=== PATIENT | female | born 1975 | race African-American/Black ===

== ENCOUNTER 2024-04-04 02:18 | Inpatient (IN) | payer OTHER ==
[2024-04-04 02:31] VITALS: BMI 34.5
[2024-04-04] MEDS ORDERED: BISMUTH SUBSALICYLATE 524 MG/30 ML PO PRN (02:39)
[2024-04-04] MEDS ORDERED: hydrOXYzine PAMOATE 25 MG CAPSULE (FP) PO PRN (02:39)
[2024-04-04] MEDS ORDERED: BENZONATATE 200 MG CAPSULE PO PRN (02:39)
[2024-04-04] MEDS ORDERED: IBUPROFEN 600 MG TABLET (FP) PO PRN (02:39)
[2024-04-04] MEDS ORDERED: IBUPROFEN 400 MG TABLET (FP) PO PRN (02:39)
[2024-04-04] MEDS ORDERED: BENZOCAINE/MENTHOL (CHLORASEPTIC ) LOZENGE MM PRN (02:39)
[2024-04-04] MEDS ORDERED: ONDANSETRON *ODT* 4 MG TABLET SL PRN (02:39)
[2024-04-04] MEDS ORDERED: LOPERAMIDE HCL 2 MG CAPSULE PO PRN (02:39)
[2024-04-04] MEDS ORDERED: MAG HYDROX/AL HYDROX/SIMETH 30 ML UNIT-DOSE CUP PO PRN (02:39)
[2024-04-04] MEDS ORDERED: NALOXONE (NARCAN) HCL 4 MG/0.1 ML SPRAY NS PRN (02:39)
[2024-04-04] MEDS ORDERED: NALOXONE HCL 0.4 MG/ML VIAL IM PRN (02:39)
[2024-04-04] MEDS ORDERED: POLYETHYLENE GLYCOL (HEALTHYLAX) 3350 17 GM PACKET PO PRN (02:39)
[2024-04-04] MEDS ORDERED: DICYCLOMINE HCL 10 MG CAPSULE PO PRN (02:39)
[2024-04-04] MEDS ORDERED: MAGNESIUM HYDROX 2400MG/30ML ORAL SUSPENSION 30 ML CUP PO PRN (02:39)
[2024-04-04] MEDS ORDERED: guaiFENesin 600 MG TABLET.ER (FP) PO PRN (02:39)
[2024-04-04] MEDS ORDERED: ACETAMINOPHEN 325 MG TABLET (FP) PO PRN (02:39)
[2024-04-04 08:50] VITALS: RESP 18
[2024-04-04] MEDS: PRENATAL VITAMINS W/ FOLIC ACID TABLET (FP) PO SCH (10:10)
[2024-04-04 11:23] LABS: HEMATOCRIT 35.3 % (32.4-45.2); HEMOGLOBIN 11.5 GM/dL (10.7-15.3); MCH 29.1 pg (25.7-33.7); MCHC 32.5 g/dl (32.0-36.0); MEAN CELL VOLUME 89.7 fl (80-96); MEAN PLT VOLUME 7.1 fl (7.5-11.1); PLATELET COUNT 269 10^3/uL (134-434); RBC 3.93 M/mm3 (3.60-5.2); RDW 15.5 % (11.6-15.6); WHITE BLOOD COUNT 8.3 K/mm3 (4.0-10.0)
[2024-04-04 11:42] LABS: CHLORIDE 111 mmol/L (98-107); POTASSIUM 3.4 mmol/L (3.5-5.1); SODIUM 142 mmol/L (136-145)
[2024-04-04 11:49] LABS: ALBUMIN 3.3 g/dl (3.4-5.0); BLOOD UREA NITROGEN 74.6 mg/dL (7-18); GLUCOSE,RANDOM 64 mg/dL (74-106); SGOT/AST 20 U/L (15-37); SGPT/ALT 12 U/L (13-61)
[2024-04-04 11:51] LABS: BILIRUBIN,TOTAL 0.5 mg/dL (0.2-1); TOT PROT 6.8 g/dl (6.4-8.2)
[2024-04-04 11:52] LABS: ALK PHOS 92 U/L (45-117); ANION GAP 15 mmol/L (4-13); CALCIUM 9.4 mg/dL (8.5-10.1); CO2 16 mmol/L (21-32)
[2024-04-04 11:54] LABS: CREATININE 8.6 mg/dL (0.55-1.3)
[2024-04-04 13:50] VITALS: BP 112/63; PULSE 60; TEMP 97.4
[2024-04-04] MEDS: MELATONIN 5 MG TABLETS PO SCH (23:21)
[2024-04-04] MEDS: THIAMINE 100 MG TABLET PO SCH (23:22)
== END 2024-04-05 06:32 | disposition short-term general hospital (02) | DRG 773 ==
LOC: YASAS 02:18 → Y3N 02:21
PROVIDERS: ADMIT Allergy & Immunology; ATTEND Allergy & Immunology
PROC: HZ2ZZZZ Detoxification Services for Substance Abuse Treatment (ICD-10-PCS; principal; 2024-04-04)
DX: F11.20 Opioid dependence, uncomplicated (principal); F14.20 Cocaine dependence, uncomplicated; F19.24 Other psychoactive substance dependence with psychoactive substance-induced mood disorder; F20.9 Schizophrenia, unspecified; R94.4 Abnormal results of kidney function studies; Z59.00 Homelessness unspecified
CPT/HCPCS: 36415; 80053; 80305; 80307; 81025; 85027; 86593; 86780; 93005; 93010

== ENCOUNTER 2024-04-04 16:18 | Inpatient (IN) | payer OTHER ==
[2024-04-04] MEDS: SODIUM CHLORIDE 0.9% 500 ML INFUS.BAG IV ONE (17:50)
[2024-04-04 18:25] LABS: BASO % 0.3 % (0-2.0); EOS % 2.1 % (0-4.5); HEMOGLOBIN 12.1 GM/dL (10.7-15.3); LYMPH % 12.5 % (8-40); MCH 29.2 pg (25.7-33.7); MCHC 32.7 g/dl (32.0-36.0); MEAN CELL VOLUME 89.2 fl (80-96); MEAN PLT VOLUME 6.9 fl (7.5-11.1); MONO % 8.2 % (3.8-10.2); NEUT % 76.9 % (42.8-82.8); PLATELET COUNT 287 10^3/uL (134-434); RBC 4.14 M/mm3 (3.60-5.2); RDW 15.7 % (11.6-15.6)
[2024-04-04 18:31] LABS: INR 0.96 (0.83-1.09)
[2024-04-04 18:33] LABS: ACTIVATED PTT 30.6 SECONDS (25.2-36.5)
[2024-04-04 18:35] LABS: CHLORIDE 109 mmol/L (98-107); POTASSIUM 3.7 mmol/L (3.5-5.1); SODIUM 140 mmol/L (136-145)
[2024-04-04 18:38] LABS: ALBUMIN 3.5 g/dl (3.4-5.0); CALCIUM 9.2 mg/dL (8.5-10.1)
[2024-04-04 18:39] LABS: ANION GAP 10 mmol/L (4-13); BLOOD UREA NITROGEN 62.8 mg/dL (7-18); CO2 21 mmol/L (21-32); GLUCOSE,RANDOM 93 mg/dL (74-106); MAGNESIUM 1.7 mg/dL (1.8-2.4)
[2024-04-04 18:42] LABS: PHOSPHOROUS 4.8 mg/dL (2.5-4.9); SGOT/AST 16 U/L (15-37); SGPT/ALT 12 U/L (13-61)
[2024-04-04 18:44] LABS: BILIRUBIN,TOTAL 0.4 mg/dL (0.2-1); TOT PROT 7.3 g/dl (6.4-8.2)
[2024-04-04 18:45] LABS: ALK PHOS 98 U/L (45-117)
[2024-04-04] MEDS ORDERED: MAGNESIUM 1GM/D5W - 1 GM/100 ML IVPB IVPB ONE (19:26)
[2024-04-04 19:34] LABS: HIV INTERPRETATION NEGATIVE (NEGATIVE)
[2024-04-04] MEDS: MAGNESIUM SULF 50% (8.12 MEQ/2 ML-1 GM VIAL) IVPB ONE (21:38)
[2024-04-04] MEDS: SODIUM CHLORIDE 1,000 ML IV STA (22:38)
[2024-04-05] MEDS: SODIUM CHLORIDE 1,000 ML IV SCH (01:17)
[2024-04-05 01:38] LABS: POTASSIUM 3.9 mmol/L (3.5-5.1)
[2024-04-05 01:40] LABS: BLOOD UREA NITROGEN 57.2 mg/dL (7-18); CALCIUM 8.7 mg/dL (8.5-10.1)
[2024-04-05 01:43] LABS: CREATININE 7.1 mg/dL (0.55-1.3)
[2024-04-05 03:19] VITALS: BMI 35.7
[2024-04-05] MEDS ORDERED: methaDONE HCL 10 MG TABLET (FOR DETOX USE ONLY) PO ONE (11:30)
[2024-04-05] MEDS: methaDONE HCL 10 MG TABLET PO ONE (11:31)
[2024-04-05] MEDS: METOCLOPRAMIDE HCL INJECTION 10 MG/2 ML VIAL IVPUSH ONE ×2 (11:32→17:55)
[2024-04-05] MEDS: FAMOTIDINE 20 MG/50 ML IVPB 20 MG/50 ML MG IVPB ONE (12:26)
[2024-04-05] MEDS: cloNIDine HCL 0.1 MG TABLET PO ONE (17:32)
[2024-04-05 18:52] LABS: POTASSIUM 3.5 mmol/L (3.5-5.1)
[2024-04-05 18:55] LABS: CALCIUM 9.5 mg/dL (8.5-10.1)
[2024-04-05 18:56] LABS: ALBUMIN 3.4 g/dl (3.4-5.0); BLOOD UREA NITROGEN 47.2 mg/dL (7-18)
[2024-04-05 18:59] LABS: CREATININE 5.5 mg/dL (0.55-1.3)
[2024-04-05 19:00] LABS: BILIRUBIN,TOTAL 0.5 mg/dL (0.2-1); TOT PROT 7.1 g/dl (6.4-8.2)
[2024-04-06] MEDS: cloNIDine HCL 0.1 MG TABLET PO ONE (00:36)
[2024-04-06] MEDS: ONDANSETRON 4 MG/2 ML VIAL IVPUSH ONE (00:36)
[2024-04-06 10:19] LABS: BASO % 0.3 % (0-2.0); HEMATOCRIT 35.1 % (32.4-45.2); HEMOGLOBIN 11.9 GM/dL (10.7-15.3); LYMPH % 14.3 % (8-40); MCH 29.9 pg (25.7-33.7); MCHC 33.9 g/dl (32.0-36.0); MEAN PLT VOLUME 6.8 fl (7.5-11.1); MONO % 7.6 % (3.8-10.2); NEUT % 77.8 % (42.8-82.8); PLATELET COUNT 230 10^3/uL (134-434); RBC 3.99 M/mm3 (3.60-5.2); RDW 15.5 % (11.6-15.6); WHITE BLOOD COUNT 9.6 K/mm3 (4.0-10.0)
[2024-04-06 10:50] LABS: POTASSIUM 3.4 mmol/L (3.5-5.1)
[2024-04-06 10:55] LABS: ALBUMIN 3.2 g/dl (3.4-5.0); CALCIUM 9.4 mg/dL (8.5-10.1)
[2024-04-06 10:56] LABS: BLOOD UREA NITROGEN 40.4 mg/dL (7-18)
[2024-04-06 11:00] LABS: BILIRUBIN,TOTAL 0.6 mg/dL (0.2-1); CREATININE 4.9 mg/dL (0.55-1.3); TOT PROT 6.8 g/dl (6.4-8.2)
[2024-04-06] MEDS: PANTOPRAZOLE 40 MG TABLET PO SCH (12:57)
[2024-04-06] MEDS: KCL 10 MEQ IVPB 10 MEQ/100 ML INFUS.BAG IVPB SCH (12:57)
[2024-04-07] MEDS: MELATONIN 5 MG TABLETS PO ONE (04:34)
[2024-04-07] MEDS: hydrOXYzine PAMOATE 25 MG CAPSULE (FP) PO ONE (04:34)
[2024-04-07] MEDS: methaDONE HCL 10 MG TABLET PO ONE (09:58)
[2024-04-07 12:43] LABS: POTASSIUM 3.6 mmol/L (3.5-5.1)
[2024-04-07 12:48] LABS: ALBUMIN 3.1 g/dl (3.4-5.0); CALCIUM 9.2 mg/dL (8.5-10.1)
[2024-04-07 12:49] LABS: BLOOD UREA NITROGEN 35.4 mg/dL (7-18); MAGNESIUM 1.7 mg/dL (1.8-2.4)
[2024-04-07 12:52] LABS: CREATININE 4.3 mg/dL (0.55-1.3); PHOSPHOROUS 3.2 mg/dL (2.5-4.9)
[2024-04-07 12:53] LABS: BILIRUBIN,TOTAL 0.6 mg/dL (0.2-1)
[2024-04-07 12:54] LABS: TOT PROT 6.6 g/dl (6.4-8.2)
[2024-04-07] MEDS: MAGNESIUM SULF 50% (8.12 MEQ/2 ML-1 GM VIAL) IVPB ONE (17:11)
[2024-04-07 19:08] LABS: C-ANCA <1:20 titer (Neg:<1:20)
[2024-04-07] MEDS ORDERED: TRIMETHOBENZAMIDE HCL 200MG/2ML INJ IM PRN (20:45)
[2024-04-08] MEDS: cloNIDine HCL 0.1 MG TABLET PO PRN (02:14)
[2024-04-08] MEDS: MELATONIN 1 MG TABLET PO PRN (21:43)
[2024-04-09 07:27] LABS: POTASSIUM 3.9 mmol/L (3.5-5.1)
[2024-04-09 07:30] LABS: ALBUMIN 2.8 g/dl (3.4-5.0); BLOOD UREA NITROGEN 33.7 mg/dL (7-18); CALCIUM 8.8 mg/dL (8.5-10.1); MAGNESIUM 1.9 mg/dL (1.8-2.4)
[2024-04-09 07:33] LABS: CREATININE 3.6 mg/dL (0.55-1.3); PHOSPHOROUS 2.9 mg/dL (2.5-4.9)
[2024-04-09 07:35] LABS: BILIRUBIN,TOTAL 0.4 mg/dL (0.2-1); TOT PROT 6.1 g/dl (6.4-8.2)
[2024-04-09] MEDS: NIFEdipine E.R. 30 MG TABLET PO ONE (07:46)
[2024-04-09] MEDS: methaDONE HCL 10 MG TABLET PO ONE (10:19)
[2024-04-10] MEDS: NIFEdipine E.R. 30 MG TABLET PO SCH ×2 (10:47→15:12)
[2024-04-10] MEDS: ACETAMINOPHEN 500 MG TABLET (FP) PO PRN (17:49)
[2024-04-10] MEDS: POLYETHYLENE GLYCOL (HEALTHYLAX) 3350 17 GM PACKET PO SCH (17:49)
[2024-04-11] MEDS: NIFEdipine E.R 60 MG TABLET PO SCH (09:43)
[2024-04-11 14:13] VITALS: TEMP 98.2
[2024-04-11 21:40] VITALS: BP 151/97
[2024-04-11] MEDS ORDERED: METHIMAZOLE 5 MG TABLET PO PRN (22:26)
[2024-04-12] MEDS: cloNIDine HCL 0.1 MG TABLET PO ONE (13:54)
[2024-04-13 07:30] VITALS: PULSE 43
[2024-04-13 08:48] VITALS: RESP 18
== END 2024-04-13 13:37 | disposition other institution (70) | DRG 469 ==
LOC: JER 16:18 → JERBED 22:07 → J5S 04-05 02:21 → J7W 04-07 18:41
PROVIDERS: ADMIT Internal Medicine
DX: N17.9 Acute kidney failure, unspecified (principal); I12.0 Hypertensive chronic kidney disease with stage 5 chronic kidney disease or end stage renal disease; N18.5 Chronic kidney disease, stage 5; N28.1 Cyst of kidney, acquired; F14.10 Cocaine abuse, uncomplicated; G40.909 Epilepsy, unspecified, not intractable, without status epilepticus; E83.42 Hypomagnesemia; F11.23 Opioid dependence with withdrawal; F17.200 Nicotine dependence, unspecified, uncomplicated; F31.9 Bipolar disorder, unspecified; F20.9 Schizophrenia, unspecified; R19.7 Diarrhea, unspecified; E86.0 Dehydration; F19.94 Other psychoactive substance use, unspecified with psychoactive substance-induced mood disorder; Z59.00 Homelessness unspecified; Z86.19 Personal history of other infectious and parasitic diseases
CPT/HCPCS: 36415; 71045-TC-FY; 76700-TC; 80048; 80053; 82436; 82550; 82553; 82570; 82962; 83036; 83520; 83735; 83935; 84100; 84133; 84156; 84300; 85025; 85610; 85730; 86038; 86256; 86803; 87389; 87522; 93005; 93010; 97116-GP; 97161-GP; 99285-25

== ENCOUNTER 2024-04-13 14:30 | Inpatient (IN) | payer OTHER ==
[2024-04-13 15:03] VITALS: BMI 35.6
[2024-04-13] MEDS ORDERED: BENZONATATE 200 MG CAPSULE PO PRN (15:39)
[2024-04-13] MEDS ORDERED: MAG HYDROX/AL HYDROX/SIMETH 30 ML UNIT-DOSE CUP PO PRN (15:39)
[2024-04-13] MEDS ORDERED: NALOXONE (NARCAN) HCL 4 MG/0.1 ML SPRAY NS PRN (15:39)
[2024-04-13] MEDS ORDERED: LOPERAMIDE HCL 2 MG CAPSULE PO PRN (15:39)
[2024-04-13] MEDS ORDERED: NALOXONE HCL 0.4 MG/ML VIAL IM PRN (15:39)
[2024-04-13] MEDS ORDERED: guaiFENesin 600 MG TABLET.ER (FP) PO PRN (15:39)
[2024-04-13] MEDS ORDERED: MAGNESIUM HYDROX 2400MG/30ML ORAL SUSPENSION 30 ML CUP PO PRN (15:39)
[2024-04-13] MEDS ORDERED: IBUPROFEN 400 MG TABLET (FP) PO PRN (15:39)
[2024-04-13] MEDS ORDERED: IBUPROFEN 600 MG TABLET (FP) PO PRN (15:39)
[2024-04-13] MEDS ORDERED: POLYETHYLENE GLYCOL (HEALTHYLAX) 3350 17 GM PACKET PO PRN (15:39)
[2024-04-13] MEDS ORDERED: BENZOCAINE/MENTHOL (CHLORASEPTIC ) LOZENGE MM PRN (15:39)
[2024-04-13] MEDS: hydrOXYzine PAMOATE 25 MG CAPSULE (FP) PO PRN (17:48)
[2024-04-13] MEDS: MELATONIN 5 MG TABLETS PO SCH (22:48)
[2024-04-13] MEDS: THIAMINE 100 MG TABLET PO SCH (22:48)
[2024-04-14] MEDS: NIFEdipine E.R 60 MG TABLET PO SCH (06:48)
[2024-04-14] MEDS: PRENATAL VITAMINS W/ FOLIC ACID TABLET (FP) PO SCH (10:33)
[2024-04-14] MEDS: ACETAMINOPHEN 325 MG TABLET (FP) PO PRN (12:28)
[2024-04-14] MEDS ORDERED: ONDANSETRON *ODT* 4 MG TABLET SL PRN (12:58)
[2024-04-14] MEDS ORDERED: DICYCLOMINE HCL 10 MG CAPSULE PO PRN (12:58)
[2024-04-14] MEDS ORDERED: BISMUTH SUBSALICYLATE 524 MG/30 ML PO PRN (12:58)
[2024-04-14] MEDS: methaDONE HCL 10 MG TABLET PO ONE ×2 (13:16→13:23)
[2024-04-14] MEDS ORDERED: methaDONE HCL 10 MG TABLET PO ONE (14:30)
[2024-04-14] MEDS: cloNIDine HCL 0.1 MG TABLET PO SCH (14:38)
[2024-04-14 17:54] LABS: HEMATOCRIT 38.8 % (32.4-45.2); HEMOGLOBIN 12.6 GM/dL (10.7-15.3); MCH 28.9 pg (25.7-33.7); MCHC 32.4 g/dl (32.0-36.0); MEAN PLT VOLUME 7.8 fl (7.5-11.1); PLATELET COUNT 268 10^3/uL (134-434); RBC 4.36 M/mm3 (3.60-5.2); RDW 15.5 % (11.6-15.6); WHITE BLOOD COUNT 7.7 K/mm3 (4.0-10.0)
[2024-04-14 17:58] LABS: POTASSIUM 4.4 mmol/L (3.5-5.1)
[2024-04-14 18:06] LABS: BLOOD UREA NITROGEN 28.5 mg/dL (7-18); CALCIUM 9.6 mg/dL (8.5-10.1)
[2024-04-14 18:09] LABS: CREATININE 2.7 mg/dL (0.55-1.3)
[2024-04-14 18:10] LABS: BILIRUBIN,TOTAL 0.5 mg/dL (0.2-1)
[2024-04-14 18:18] LABS: ALBUMIN 3.4 g/dl (3.4-5.0)
[2024-04-14] MEDS: methaDONE HCL 10 MG TABLET PO PRN (21:28)
[2024-04-15] MEDS: methaDONE 40 MG, methaDONE 10 MG PO ONE (10:37)
[2024-04-15] MEDS: QUEtiapine FUMARATE 50 MG TABLET PO SCH (21:52)
[2024-04-15] MEDS: hydrOXYzine PAMOATE 50 MG CAPSULE (FP) PO PRN (21:52)
[2024-04-16] MEDS ORDERED: cloNIDine HCL 0.1 MG TABLET PO PRN
[2024-04-16] MEDS: methaDONE 40 MG, methaDONE 20 MG PO ONE (06:27)
[2024-04-16] MEDS ORDERED: methaDONE 40 MG, methaDONE 20 MG PO ONE (10:00)
[2024-04-17] MEDS ORDERED: methaDONE 40 MG, methaDONE 30 MG PO ONE ×2 (06:00→10:00)
[2024-04-17] MEDS ORDERED: methaDONE HCL 10 MG TABLET PO SCH (06:00)
[2024-04-17] MEDS: methaDONE 40 MG, methaDONE 20 MG PO SCH (06:16)
[2024-04-18] MEDS ORDERED: methaDONE HCL 40 MG DISPERSABLE TABLET PO ONE ×2 (06:00→10:00)
[2024-04-19] MEDS ORDERED: methaDONE 80 MG, methaDONE 10 MG PO ONE ×2 (06:00→10:00)
[2024-04-20] MEDS: FUROSEMIDE 20 MG TABLET (FP) PO SCH (12:25)
[2024-04-24 14:42] LABS: POTASSIUM 4.3 mmol/L (3.5-5.1)
[2024-04-24 14:45] LABS: ALBUMIN 2.9 g/dl (3.4-5.0); BLOOD UREA NITROGEN 41.9 mg/dL (7-18)
[2024-04-24 14:49] LABS: CREATININE 3.5 mg/dL (0.55-1.3)
[2024-04-24 14:51] LABS: BILIRUBIN,TOTAL 0.8 mg/dL (0.2-1); TOT PROT 6.8 g/dl (6.4-8.2)
[2024-04-24] MEDS ORDERED: NALOXONE (NYS OPIOID OVERDOSE PROGRAM) 4 MG/0.1 ML SPRAY NS PRN (15:00)
[2024-04-30] MEDS: FUROSEMIDE 20 MG TABLET (FP) PO SCH (11:30)
[2024-05-02 07:00] VITALS: RESP 18
[2024-05-04 07:32] VITALS: TEMP 98.1
[2024-05-04 11:23] VITALS: BP 123/75; PULSE 91
== END 2024-05-04 11:02 | disposition home or self-care (01) | DRG 772 ==
LOC: YASAS 14:30 → Y5N 16:36
PROVIDERS: ADMIT Psychiatry & Neurology Pain Medicine; ATTEND Psychiatry & Neurology Pain Medicine
PROC: HZ42ZZZ Group Counseling for Substance Abuse Treatment, Cognitive-Behavioral (ICD-10-PCS; principal; 2024-04-13)
DX: F11.20 Opioid dependence, uncomplicated (principal); F14.20 Cocaine dependence, uncomplicated; F19.24 Other psychoactive substance dependence with psychoactive substance-induced mood disorder; F31.9 Bipolar disorder, unspecified; F41.9 Anxiety disorder, unspecified; I12.9 Hypertensive chronic kidney disease with stage 1 through stage 4 chronic kidney disease, or unspecified chronic kidney disease; N18.9 Chronic kidney disease, unspecified; R60.0 Localized edema; Z86.19 Personal history of other infectious and parasitic diseases; Z86.69 Personal history of other diseases of the nervous system and sense organs
CPT/HCPCS: 36415; 80053; 80305; 81025; 82140; 83036; 85027; 86593; 86780; 87811

== ENCOUNTER 2024-06-11 12:17 | Inpatient (IN) | payer OTHER ==
[2024-06-11 12:42] VITALS: BMI 34.7
[2024-06-11] MEDS ORDERED: POLYETHYLENE GLYCOL (HEALTHYLAX) 3350 17 GM PACKET PO PRN (14:02)
[2024-06-11] MEDS ORDERED: IBUPROFEN 400 MG TABLET (FP) PO PRN (14:02)
[2024-06-11] MEDS ORDERED: NALOXONE (NARCAN) HCL 4 MG/0.1 ML SPRAY NS PRN (14:02)
[2024-06-11] MEDS ORDERED: ACETAMINOPHEN 325 MG TABLET (FP) PO PRN (14:02)
[2024-06-11] MEDS ORDERED: MAG HYDROX/AL HYDROX/SIMETH 30 ML UNIT-DOSE CUP PO PRN (14:02)
[2024-06-11] MEDS ORDERED: BENZONATATE 200 MG CAPSULE PO PRN (14:02)
[2024-06-11] MEDS ORDERED: LOPERAMIDE HCL 2 MG CAPSULE PO PRN (14:02)
[2024-06-11] MEDS ORDERED: BENZOCAINE/MENTHOL (CHLORASEPTIC ) LOZENGE MM PRN (14:02)
[2024-06-11] MEDS ORDERED: guaiFENesin 600 MG TABLET.ER (FP) PO PRN (14:02)
[2024-06-11] MEDS ORDERED: MAGNESIUM HYDROX 2400MG/30ML ORAL SUSPENSION 30 ML CUP PO PRN (14:02)
[2024-06-11] MEDS: MELATONIN 5 MG TABLETS PO SCH (21:45)
[2024-06-11] MEDS: THIAMINE 100 MG TABLET PO SCH (21:45)
[2024-06-12] MEDS: PRENATAL VITAMINS W/ FOLIC ACID TABLET (FP) PO SCH (10:41)
[2024-06-12 13:41] LABS: HEMATOCRIT 33.6 % (32.4-45.2); HEMOGLOBIN 10.7 GM/dL (10.7-15.3); MCH 28.6 pg (25.7-33.7); MCHC 31.9 g/dl (32.0-36.0); MEAN CELL VOLUME 89.9 fl (80-96); MEAN PLT VOLUME 6.7 fl (7.5-11.1); PLATELET COUNT 403 10^3/uL (134-434); RBC 3.74 M/mm3 (3.60-5.2); RDW 14.6 % (11.6-15.6); WHITE BLOOD COUNT 6.7 K/mm3 (4.0-10.0)
[2024-06-12 13:50] LABS: CHLORIDE 111 mmol/L (98-107); POTASSIUM 4.9 mmol/L (3.5-5.1); SODIUM 142 mmol/L (136-145)
[2024-06-12 13:58] LABS: ANION GAP 9 mmol/L (4-13); CALCIUM 9.5 mg/dL (8.5-10.1); CO2 22 mmol/L (21-32)
[2024-06-12 13:59] LABS: ALBUMIN 2.9 g/dl (3.4-5.0); GLUCOSE,RANDOM 89 mg/dL (74-106)
[2024-06-12 14:02] LABS: SGOT/AST 9 U/L (15-37); SGPT/ALT 13 U/L (13-61)
[2024-06-12 14:03] LABS: BILIRUBIN,TOTAL 0.2 mg/dL (0.2-1); TOT PROT 6.2 g/dl (6.4-8.2)
[2024-06-12 14:04] LABS: ALK PHOS 97 U/L (45-117)
[2024-06-12 14:08] LABS: BLOOD UREA NITROGEN 29.2 mg/dL (7-18)
[2024-06-13] MEDS: NIFEdipine E.R 60 MG TABLET PO SCH (13:24)
[2024-06-13] MEDS: FUROSEMIDE 20 MG TABLET (FP) PO SCH (13:24)
[2024-06-14] MEDS: IBUPROFEN 600 MG TABLET (FP) PO PRN (02:14)
[2024-06-14] MEDS: hydrOXYzine PAMOATE 25 MG CAPSULE (FP) PO PRN (08:24)
[2024-06-15] MEDS: TRIMETHOBENZAMIDE HCL 200MG/2ML INJ IM ONE (11:47)
[2024-06-15] MEDS ORDERED: ONDANSETRON *ODT* 4 MG TABLET SL PRN (13:53)
[2024-06-15] MEDS: hydrALAZINE HCL 50 MG TABLET (FP) PO ONE (14:02)
[2024-06-15] MEDS: ONDANSETRON 4 MG/2 ML VIAL IM ONE (14:06)
[2024-06-15 14:13] LABS: EPI CELLS >36 /uL (0-25.1); HYALINE CASTS 0 /uL (0-3.1); PH,URINE 6.5 (5.0-8.0); URINE APPEARANCE CLOUDY; URINE BACTERIA 826 /uL (0-1359); URINE BILIRUBIN NEGATIVE (NEGATIVE); URINE COLOR YELLOW; URINE GLUCOSE (UA) NEGATIVE (NEGATIVE); URINE KETONE NEGATIVE (NEGATIVE); URINE LEUK ESTERASE NEGATIVE (NEGATIVE); URINE NITRITE NEGATIVE (NEGATIVE); URINE PROTEIN 1+ (NEGATIVE); URINE RBC 2 /uL (0-23.9); URINE UROBILINOGEN 0.2 mg/dL (0.2-1.0); URINE WBC 16 /uL (0-25.8)
[2024-06-15 16:04] VITALS: BP 216/121; PULSE 64; RESP 16
[2024-06-15 16:13] VITALS: TEMP 97.6
== END 2024-06-15 23:00 | disposition short-term general hospital (02) | DRG 772 ==
LOC: YASAS 12:17 → Y3NR 14:47
PROVIDERS: ADMIT Psychiatry & Neurology Pain Medicine; ATTEND Psychiatry & Neurology Pain Medicine
PROC: HZ42ZZZ Group Counseling for Substance Abuse Treatment, Cognitive-Behavioral (ICD-10-PCS; principal; 2024-06-11)
DX: F11.20 Opioid dependence, uncomplicated (principal); F14.20 Cocaine dependence, uncomplicated; F17.210 Nicotine dependence, cigarettes, uncomplicated; F31.9 Bipolar disorder, unspecified; F41.9 Anxiety disorder, unspecified; I10 Essential (primary) hypertension; N28.9 Disorder of kidney and ureter, unspecified; R11.2 Nausea with vomiting, unspecified; Z56.0 Unemployment, unspecified; Z59.00 Homelessness unspecified
CPT/HCPCS: 36415; 80053; 80305; 80307; 81003; 81025; 85027; 86593; 86780; 87811; 93005; 93010

== ENCOUNTER 2024-06-15 14:59 | Inpatient (IN) | payer OTHER ==
[2024-06-15] MEDS ORDERED: ACETAMINOPHEN INJECTION 100 ML ONE (15:44)
[2024-06-15] MEDS ORDERED: ONDANSETRON 4 MG/2 ML VIAL ONE (15:45)
[2024-06-15] MEDS ORDERED: LABETALOL HCL 20 MG/4 ML VIAL ONE ×2 (15:45→22:28)
[2024-06-15] MEDS ORDERED: DEXTROSE 50%-WATER 25 GM/50 ML DISP.SYRIN ONE (15:47)
[2024-06-15] MEDS: ONDANSETRON 4 MG/2 ML VIAL IVPUSH ONE (16:05)
[2024-06-15] MEDS: DEXTROSE 50%-WATER - 25 GM/50 ML VIAL IVPUSH ONE (16:08)
[2024-06-15] MEDS: ACETAMINOPHEN 1000 MG/100 ML BAG IVPB ONE (16:10)
[2024-06-15 16:22] LABS: BASO % 0.3 % (0-2.0); EOS % 0.4 % (0-4.5); HEMATOCRIT 41.1 % (32.4-45.2); HEMOGLOBIN 13.3 GM/dL (10.7-15.3); LYMPH % 10.6 % (8-40); MCH 28.5 pg (25.7-33.7); MCHC 32.3 g/dl (32.0-36.0); MEAN CELL VOLUME 88.3 fl (80-96); MEAN PLT VOLUME 6.4 fl (7.5-11.1); MONO % 3.5 % (3.8-10.2); NEUT % 85.2 % (42.8-82.8); PLATELET COUNT 355 10^3/uL (134-434); RBC 4.65 M/mm3 (3.60-5.2); RDW 14.8 % (11.6-15.6); WHITE BLOOD COUNT 8.8 K/mm3 (4.0-10.0)
[2024-06-15] MEDS: LABETALOL HCL 5 MG/1 ML (100MG/20 ML VIAL) IVPUSH ONE ×2 (16:36→22:30)
[2024-06-15 16:39] LABS: POTASSIUM 4.5 mmol/L (3.5-5.1)
[2024-06-15 16:41] LABS: BLOOD UREA NITROGEN 28.8 mg/dL (7-18)
[2024-06-15 16:44] LABS: CREATININE 2.2 mg/dL (0.55-1.3)
[2024-06-15 16:45] LABS: ALBUMIN 3.6 g/dl (3.4-5.0)
[2024-06-15 16:46] LABS: BILIRUBIN,TOTAL 0.4 mg/dL (0.2-1); TOT PROT 7.7 g/dl (6.4-8.2)
[2024-06-15 16:49] LABS: N-TERMINAL BNP 94.8 pg/ml (5-125)
[2024-06-15 18:25] LABS: PH,URINE 6.5 (5.0-8.0); URINE APPEARANCE CLOUDY; URINE BILIRUBIN NEGATIVE (NEGATIVE); URINE COLOR YELLOW; URINE GLUCOSE (UA) 1+ (NEGATIVE); URINE KETONE NEGATIVE (NEGATIVE); URINE LEUK ESTERASE NEGATIVE (NEGATIVE); URINE NITRITE NEGATIVE (NEGATIVE); URINE PROTEIN TRACE (NEGATIVE); URINE UROBILINOGEN 0.2 mg/dL (0.2-1.0)
[2024-06-15] MEDS ORDERED: METOCLOPRAMIDE HCL INJECTION 10 MG/2 ML VIAL ONE (18:52)
[2024-06-15] MEDS: METOCLOPRAMIDE HCL INJECTION 10 MG/2 ML VIAL IVPUSH ONE (18:56)
[2024-06-15] MEDS ORDERED: MAGNESIUM SULFATE IN WATER 2 GM/50 ML IVPB IVPB ONE (20:08)
[2024-06-15] MEDS ORDERED: FAMOTIDINE 20 MG/50 ML IVPB 20 MG/50 ML MG IVPB ONE (20:08)
[2024-06-15] MEDS ORDERED: MAG HYDROX/AL HYDROX/SIMETH 30 ML UNIT-DOSE CUP ONE (20:08)
[2024-06-15] MEDS: MAG HYDROX/AL HYDROX/SIMETH 30 ML UNIT-DOSE CUP PO ONE (20:21)
[2024-06-15] MEDS: MAGNESIUM SULFATE IN WATER 2 GM/50 ML IVPB IVPB ONE (20:21)
[2024-06-15] MEDS: FAMOTIDINE 20 MG/50 ML IVPB 20 MG/50 ML MG IVPB ONE (20:21)
[2024-06-15] MEDS ORDERED: NIFEdipine E.R 60 MG TABLET PO ONE (20:25)
[2024-06-15] MEDS: NIFEdipine E.R 60 MG TABLET PO ONE (20:28)
[2024-06-15] MEDS ORDERED: HEPARIN NA (PORCINE) 5,000 UNITS/ML 1ML VIAL ONE (22:29)
[2024-06-15] MEDS: HEPARIN NA (PORCINE) 5,000 UNITS/ML 1ML VIAL SQ SCH (22:37)
[2024-06-16] MEDS: ACETAMINOPHEN 325 MG TABLET (FP) PO PRN (01:51)
[2024-06-16] MEDS ORDERED: MELATONIN 5 MG TABLETS PO ONE (02:21)
[2024-06-16] MEDS ORDERED: hydrOXYzine PAMOATE 50 MG CAPSULE (FP) PO PRN (03:06)
[2024-06-16] MEDS: MELATONIN 5 MG TABLETS PO SCH (03:55)
[2024-06-16 06:11] VITALS: PULSE 88; RESP 18
[2024-06-16 06:50] LABS: HEMATOCRIT 39.8 % (32.4-45.2); HEMOGLOBIN 12.9 GM/dL (10.7-15.3); MCH 28.8 pg (25.7-33.7); MCHC 32.4 g/dl (32.0-36.0); MEAN CELL VOLUME 88.7 fl (80-96); MEAN PLT VOLUME 6.4 fl (7.5-11.1); PLATELET COUNT 365 10^3/uL (134-434); RBC 4.48 M/mm3 (3.60-5.2); RDW 14.8 % (11.6-15.6); WHITE BLOOD COUNT 9.7 K/mm3 (4.0-10.0)
[2024-06-16] MEDS: LABETALOL HCL 100 MG TABLET (FP) PO SCH (06:51)
[2024-06-16 07:14] LABS: POTASSIUM 4.3 mmol/L (3.5-5.1)
[2024-06-16 07:18] LABS: ALBUMIN 3.4 g/dl (3.4-5.0)
[2024-06-16 07:21] LABS: MAGNESIUM 2.1 mg/dL (1.8-2.4)
[2024-06-16 07:22] LABS: CREATININE 2.3 mg/dL (0.55-1.3)
[2024-06-16 07:23] LABS: BLOOD UREA NITROGEN 26.6 mg/dL (7-18); TOT PROT 7.4 g/dl (6.4-8.2)
[2024-06-16 07:25] LABS: PHOSPHOROUS 4.6 mg/dL (2.5-4.9)
[2024-06-16 07:27] LABS: BILIRUBIN,TOTAL 0.4 mg/dL (0.2-1)
[2024-06-16] MEDS: FUROSEMIDE 20 MG TABLET (FP) PO SCH (11:37)
[2024-06-16] MEDS: NIFEdipine E.R 60 MG TABLET PO SCH (11:37)
[2024-06-16 11:58] VITALS: BP 129/98; TEMP 98.2
[2024-06-16 13:18] VITALS: BMI 32.7
[2024-06-16] MEDS ORDERED: NIFEdipine E.R 60 MG TABLET PO ONE (19:29)
[2024-06-16] MEDS ORDERED: QUEtiapine FUMARATE 50 MG TABLET PO SCH (22:00)
== END 2024-06-16 13:24 | disposition other institution (70) | DRG 199 ==
LOC: JER 14:59 → JERBED 20:20 → OBSVTOIN 21:55 → J4W 06-16 00:18
PROVIDERS: ADMIT Student in an Organized Health Care Education/Training Program; ATTEND Psychiatry & Neurology Pain Medicine
DX: I16.0 Hypertensive urgency (principal); N18.4 Chronic kidney disease, stage 4 (severe); F11.20 Opioid dependence, uncomplicated; F14.20 Cocaine dependence, uncomplicated; F31.9 Bipolar disorder, unspecified; I12.9 Hypertensive chronic kidney disease with stage 1 through stage 4 chronic kidney disease, or unspecified chronic kidney disease; R11.2 Nausea with vomiting, unspecified
CPT/HCPCS: 36415; 70450-TC; 71045-TC-FY; 80053; 80061; 81003; 82962; 83036; 83735; 83880; 83930; 84100; 84484; 85025; 85027; 87086; 93306-TC; 99285-25; G0378; J0131; J1644

== ENCOUNTER 2024-06-16 14:35 | Inpatient (IN) | payer OTHER ==
[2024-06-16 15:41] VITALS: BMI 32.9
[2024-06-16] MEDS ORDERED: POLYETHYLENE GLYCOL (HEALTHYLAX) 3350 17 GM PACKET PO PRN (16:21)
[2024-06-16] MEDS ORDERED: MAGNESIUM HYDROX 2400MG/30ML ORAL SUSPENSION 30 ML CUP PO PRN (16:21)
[2024-06-16] MEDS ORDERED: LOPERAMIDE HCL 2 MG CAPSULE PO PRN (16:21)
[2024-06-16] MEDS ORDERED: guaiFENesin 600 MG TABLET.ER (FP) PO PRN (16:21)
[2024-06-16] MEDS ORDERED: NALOXONE HCL 0.4 MG/ML VIAL IVPUSH PRN (16:21)
[2024-06-16] MEDS ORDERED: hydrOXYzine PAMOATE 25 MG CAPSULE (FP) PO PRN (16:21)
[2024-06-16] MEDS ORDERED: IBUPROFEN 600 MG TABLET (FP) PO PRN (16:21)
[2024-06-16] MEDS ORDERED: MAG HYDROX/AL HYDROX/SIMETH 30 ML UNIT-DOSE CUP PO PRN (16:21)
[2024-06-16] MEDS ORDERED: BENZOCAINE/MENTHOL (CHLORASEPTIC ) LOZENGE MM PRN (16:21)
[2024-06-16] MEDS ORDERED: NALOXONE (NARCAN) HCL 4 MG/0.1 ML SPRAY NS PRN (16:21)
[2024-06-16] MEDS ORDERED: IBUPROFEN 400 MG TABLET (FP) PO PRN (16:21)
[2024-06-16] MEDS ORDERED: BENZONATATE 200 MG CAPSULE PO PRN (16:21)
[2024-06-16] MEDS: MELATONIN 5 MG TABLETS PO SCH (21:52)
[2024-06-16] MEDS: hydrALAZINE HCL 25 MG TABLET (FP) PO SCH (21:52)
[2024-06-16] MEDS: QUEtiapine FUMARATE 50 MG TABLET PO SCH (21:52)
[2024-06-16] MEDS: THIAMINE 100 MG TABLET PO SCH (21:52)
[2024-06-16] MEDS: METHOCARBAMOL 500 MG TABLET PO PRN (21:53)
[2024-06-16] MEDS: ROSUVASTATIN CA 5 MG TABLET PO SCH (23:44)
[2024-06-17] MEDS: NIFEdipine E.R 60 MG TABLET PO SCH (09:28)
[2024-06-17] MEDS: PRENATAL VITAMINS W/ FOLIC ACID TABLET (FP) PO SCH (09:28)
[2024-06-17] MEDS: FUROSEMIDE 20 MG TABLET (FP) PO SCH (09:28)
[2024-06-17] MEDS: PANTOPRAZOLE 20 MG TABLET PO SCH (15:16)
[2024-06-17] MEDS: NIFEdipine E.R. 30 MG TABLET PO ONE (15:17)
[2024-06-17] MEDS: ACETAMINOPHEN 325 MG TABLET (FP) PO PRN (22:33)
[2024-06-17] MEDS: propRANOLol HCL 10 MG TABLET PO ONE (23:40)
[2024-06-18] MEDS: NIFEdipine E.R. 90 MG TABLET PO SCH ×2 (06:42→09:48)
[2024-06-18] MEDS ORDERED: NIFEdipine E.R. 90 MG TABLET PO SCH (10:00)
[2024-06-18] MEDS: propRANOLol HCL 10 MG TABLET PO SCH ×2 (10:22→21:50)
[2024-06-18 11:17] LABS: POTASSIUM 4.5 mmol/L (3.5-5.1)
[2024-06-18 11:18] LABS: CALCIUM 10.1 mg/dL (8.5-10.1)
[2024-06-18 11:19] LABS: ALBUMIN 3.5 g/dl (3.4-5.0); BLOOD UREA NITROGEN 30.3 mg/dL (7-18)
[2024-06-18 11:22] LABS: CREATININE 2.9 mg/dL (0.55-1.3); PHOSPHOROUS 4.9 mg/dL (2.5-4.9)
[2024-06-18 11:26] LABS: CREATININE 2.9 mg/dL (0.55-1.3)
[2024-06-18] MEDS: hydrOXYzine PAMOATE 50 MG CAPSULE (FP) PO PRN (18:15)
[2024-06-21 09:07] VITALS: RESP 16
[2024-06-22 06:56] VITALS: TEMP 97.6
[2024-06-22 11:15] VITALS: BP 109/74; PULSE 81
[2024-06-22] MEDS: NALOXONE (NYS OPIOID OVERDOSE PROGRAM) 4 MG/0.1 ML SPRAY NS PRN (11:30)
== END 2024-06-22 11:35 | disposition left against medical advice (07) | DRG 770 ==
LOC: YASAS 14:35 → Y3NR 20:20 → Y5N 06-17 11:42
PROVIDERS: ADMIT Psychiatry & Neurology Pain Medicine; ATTEND Psychiatry & Neurology Pain Medicine
PROC: HZ42ZZZ Group Counseling for Substance Abuse Treatment, Cognitive-Behavioral (ICD-10-PCS; principal; 2024-06-16)
DX: F11.20 Opioid dependence, uncomplicated (principal); F14.20 Cocaine dependence, uncomplicated; F17.210 Nicotine dependence, cigarettes, uncomplicated; F31.9 Bipolar disorder, unspecified; F20.9 Schizophrenia, unspecified; F41.9 Anxiety disorder, unspecified; G40.909 Epilepsy, unspecified, not intractable, without status epilepticus; I10 Essential (primary) hypertension; N28.9 Disorder of kidney and ureter, unspecified; R76.11 Nonspecific reaction to tuberculin skin test without active tuberculosis; Z86.19 Personal history of other infectious and parasitic diseases
CPT/HCPCS: 36415; 80069; 80305; 80307; 82565; 87811; 93005; 93010